=== PATIENT | female | born 1990 | race Caucasian/White ===

== ENCOUNTER 2019-01-15 21:43 | Emergency (ER) | payer BC, OTHER | END 2019-01-16 00:40 | disposition home or self-care (01) | LOC: E/R 01-16 00:40 | DX: S90.01XA Contusion of right ankle, initial encounter (principal); W18.39XA Other fall on same level, initial encounter; Y92.9 Unspecified place or not applicable | CPT/HCPCS: 73610; 73610-RT; 99283-25 ==